=== PATIENT | female | born 1960 | race Caucasian/White ===

== ENCOUNTER → 2017-01-28 | Outpatient (CLI) | payer OTHER | END | disposition home or self-care (01) | LOC: CDC 15:51 | DX: Z01.810 Encounter for preprocedural cardiovascular examination (principal); M75.121 Complete rotator cuff tear or rupture of right shoulder, not specified as traumatic; M75.41 Impingement syndrome of right shoulder | CPT/HCPCS: 93000 ==

== ENCOUNTER 2017-04-05 05:12 | Day surgery (SDC) | payer OTHER ==
[~2017-04-05] VITALS: Ht 160 cm; Wt 61.2 kg
[~2017-04-05 05:12] MED LIST: IMITREX25 MG PO; LEVO-T50 MCG PO; PANTOPRAZOLE SO40 MG PO
[2017-04-05] MEDS ORDERED: ADVIL200 MG PO (05:52)
[2017-04-05 05:59] VITALS: BP 109/73
[2017-04-05 11:13] VITALS: BP 109/71
[2017-04-05 12:15] VITALS: BP 116/70
== END 2017-04-05 12:38 | disposition home or self-care (01) ==
LOC: SDC 05:12
PROC: 09SM0ZZ Reposition Nasal Septum, Open Approach (ICD-10-PCS; principal; 2017-04-05)
DX: J34.2 Deviated nasal septum (principal); J31.0 Chronic rhinitis; E03.9 Hypothyroidism, unspecified; K21.9 Gastro-esophageal reflux disease without esophagitis; Z87.891 Personal history of nicotine dependence
CPT/HCPCS: J0131; J0690; J1100; J1170; J2250; J2405; J2710; J3301; J7050